=== PATIENT | male | born 1980 | race Caucasian/White ===

== ENCOUNTER 2023-09-05 08:00 | Outpatient (RCR) | payer OTHER, SELFPAY | END 2023-09-09 13:09 | disposition home or self-care (01) | LOC: HO.PT 08:00 | PROVIDERS: PCP Urology; Visit Provider Urology | DX: N41.1 Chronic prostatitis (principal); N39.43 Post-void dribbling | CPT/HCPCS: 97110; 97112; 97140; 97161 ==